=== PATIENT | female | born 1925 | race Caucasian/White ===

== ENCOUNTER 2016-05-15 02:16 | Emergency (ER) | payer MEDICARE, BC ==
--- NOTE | 2016-05-15 03:27 | EDM.PDOC ---
ED HPI HEAD INJURY - General Chief Complaint: Head Injury Stated Complaint: FELL AND HIT HEAD Time Seen by Provider: 05/15/16 02:18 Source of Information: Reports: Patient, EMS History Limitations: Reports: No limitations - History of Present Illness INITIAL COMMENTS - FREE TEXT/NARRATIVE: HISTORY AND PHYSICAL: History of present illness: [] 82-year-old female with a history of atrial fibrillation on Coumadin with which she is compliant also with a history of hypertension and congestive heart failure now brought in by EMS for evaluation after loss of balance and fall. Patient states she fell and bumped her head. Denies loss of consciousness. She denies any neck pain. Patient denies other complaint or injury. She had no chest pain or shortness of breath. No prodromal symptoms whatsoever. she has been feeling well she denies headache currently and has no other complaints. Patient is alert and oriented and she is refusing any laboratory workup. Review of systems: As per history of present illness and below otherwise all systems reviewed and negative. Past medical history: As per history of present illness and as reviewed below otherwise noncontributory. Surgical history: As per history of present illness and as reviewed below otherwise noncontributory. Social history: No reported history of drug or alcohol abuse. Family history: As per history of present illness and as reviewed below otherwise noncontributory. Physical exam: 2 cm laceration right for head. Well approximated spontaneously. No active bleeding. No bony crepitus. No hematoma. Patient with no arcos sign. Normal TMs bilateral with no hemotympanum. Nontender C-spine with normal painless range of motion. Nonfocal neurologic exam. Patient is alert and oriented he to develop or HEENT: Atraumatic, normocephalic, pupils reactive, negative for conjunctival pallor or scleral icterus, mucous membranes moist, throat clear, neck supple, nontender, trachea midline. Lungs: Clear to auscultation, breath sounds equal bilaterally, chest nontender. Heart: S1S2, regular, negative for clicks, rubs, or JVD. Abdomen: Soft, nondistended, nontender. Negative for masses or hepatosplenomegaly. Negative for costovertebral tenderness. Pelvis: Stable nontender. Both hips nontender with no pain internal and external rotation and flexion. Genitourinary: Deferred. Rectal: Deferred. Extremities: Atraumatic, negative for cords or calf pain. Neurovascular unremarkable. Neuro: Awake, alert, oriented. Cranial nerves II through XII unremarkable. Cerebellum unremarkable. Motor and sensory unremarkable throughout. Exam nonfocal. Diagnostics: [] Therapeutics: [] Impression: [] Plan: [] Definitive disposition and diagnosis as appropriate pending reevaluation and review of above. - Related Data Allergies/ADRs: Allergies Allergy/AdvReac Type Severity Reaction Status Date / Time No Known Allergies Allergy Verified 06/21/14 12:55 Home Meds: Home Meds Bisacodyl [Dulcolax] 5 mg PO DAILY PRN #0 tablet 06/27/14 [Rx] Diltiazem [Cardizem CD] 240 mg PO DAILY cap.cd 06/27/14 [Rx] Furosemide [Lasix] 40 mg PO DAILY tablet 06/27/14 [Rx] Mirtazapine [Remeron] 45 mg PO BEDTIME #30 tab.dis 06/27/14 [Rx] cloNIDine [Catapres] 0.1 mg PO Q12HR tablet 06/27/14 [Rx] Acetaminophen [Arthritis Pain Relief] 650 mg PO Q4H PRN 05/15/16 [History] Acetaminophen [Tylenol] 650 mg PO Q6H PRN 05/15/16 [History] Allopurinol [Zyloprim] 100 mg PO BID 05/15/16 [History] Bisacodyl 10 mg RECTAL ASDIRECTED PRN 05/15/16 [History] Citalopram [Celexa] 10 mg PO DAILY 05/15/16 [History] Levothyroxine [Synthroid] 50 mcg PO DAILY 05/15/16 [History] Lisinopril [Prinivil] 20 mg PO DAILY 05/15/16 [History] Loperamide [Imodium] 2 mg PO ASDIRECTED PRN 05/15/16 [History] Magnesium Hydroxide [Milk of Magnesia] 30 ml PO Q6H PRN 05/15/16 [History] Prednisone [IJD: predniSONE] 20 mg PO WITHBREAKFAST 05/15/16 [History] Warfarin [Coumadin] 5 mg PO DAILY 05/15/16 [History] guaiFENesin/Codeine Phosphate [Guaiatussin AC Liquid] 10 ml PO Q4H PRN 05/15/16 [History] Past Medical History HEENT History: Reports: Macular degeneration Cardiovascular History: Reports: Afib, Arrhythmia, Heart Failure, Hypertension, Other (see below) Other Cardiovascular History: systolic heart failure, coronary athersclerosis of unspecified type of vessel Respiratory History: Reports: Pneumonia, recurrent, Other (see below) Other Respiratory History: pleural effusion, pneumonia organism unspecified Gastrointestinal History: Reports: GERD 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: Musculoskeletal History: Reports: Gout, Other (see below) Other Musculoskeletal History: recently started a medication for gout, difficulty walking, lack of coordination, muscle weakness Endocrine/Metabolic History: Reports: Hyperparathyroidism, Other (see below) Other Endocrine/Metabolic History: hyperlipidemia - Infectious Disease History Infectious Disease History: Reports: Measles, Mumps Social & Family History - Family History Family Medical History: Noncontributory - Tobacco Use Smoking Status *Q: Never Smoker Second Hand Smoke Exposure: No - Caffeine Use Caffeine Use: Reports: Coffee - Alcohol Use Days Per Week of Alcohol Use: 0 - Recreational Drug Use Recreational Drug Use: No ED ROS GENERAL - Review of Systems Review Of Systems: See Below (Per history of present illness) ED EXAM, HEAD INJURY - Physical Exam Exam: See Below (Per history of present illness) Course - Vital Signs Text/Narrative:: Status post minor head injury on Coumadin. No hematoma or complaint of headache patient completely alert and oriented with no neck pain or tenderness. Imaging C -spine not indicated clinically. Patient nonfocal neurologically with the remainder of exam benign . CT of the head pending to rule out intracranial injury or bleeding.. Patient is refusing laboratory workup including INR. She is aware of the risk of or permanent disability from refusing this care she's communicative and clear minded and clinically competent for decision- making. If CT x-rays chest and pelvis are unremarkable anticipate outpatient followup and returned to her assisted-living environment. Tetanus updated Last Recorded V/S: Last Vital Signs Temp 36.8 C 05/15/16 02:16 Pulse 103 H 05/15/16 02:16 Resp 20 05/15/16 02:16 BP 206/114 H 05/15/16 02:16 Pulse Ox 93 L 05/15/16 02:16 - Orders/Labs/Meds Orders: Active Orders 24 hr Category Date Time Status EKG Documentation Completion [RC] STAT Care 05/15/16 02:30 Active Vaccines to be Administered [RC] PER UNIT ROUTINE Care 05/15/16 03:50 Active Chest 1V Frontal [CR] Stat Exams 05/15/16 02:51 Taken Head wo Cont [CT] Stat Exams 05/15/16 02:30 Taken Pelvis 1V or 2V [CR] Stat Exams 05/15/16 02:51 Taken Sodium Chloride 0.9% [Normal Saline] 500 ml Med 05/15/16 04:45 Active IV .BOLUS Medication Orders Sodium Chloride (Normal Saline) 500 mls @ 999 mls/hr IV .BOLUS DANIELLE Last Admin: 05/15/16 04:38 Dose: 999 mls/hr Labs: Laboratory Tests 05/15/16 05/15/16 05/15/16 Range/Units 03:39 03:39 03:39 WBC 7.80 (4.0-11.0) K/uL RBC 5.26 (4.30-5.90) M/uL Hgb 14.8 (12.0-16.0) g/dL Hct 43.8 (36.0-46.0) % MCV 83.3 (80.0-98.0) fL MCH 28.1 (27.0-32.0) pg MCHC 33.8 (31.0-37.0) g/dL RDW Std Deviation 47.3 (28.0-62.0) fl RDW Coeff of Glory 16 H (11.0-15.0) % Plt Count 303 (150-400) K/uL MPV 9.60 (7.40-12.00) fL Neut % (Auto) 84.4 H (48.0-80.0) % Lymph % (Auto) 9.2 L (16.0-40.0) % Wallace % (Auto) 6.4 (0.0-15.0) % Eos % (Auto) 0.0 (0.0-7.0) % Baso % (Auto) 0.0 (0.0-1.5) % Neut # (Auto) 6.6 H (1.4-5.7) K/uL Lymph # (Auto) 0.7 (0.6-2.4) K/uL Wallace # (Auto) 0.5 (0.0-0.8) K/uL Eos # (Auto) 0.0 (0.0-0.7) K/uL Baso # (Auto) 0.0 (0.0-0.1) K/uL Nucleated RBC % 0.0 /100WBC Nucleated RBCs # 0 K/uL INR (0.86-1.11) Sodium 139 (136-146) mmol/L Potassium 4.3 (3.5-5.1) mmol/L Chloride 105 (98-110) mmol/L Carbon Dioxide 23 (21-31) mmol/L BUN 31 H (6.0-23.0) mg/dL Creatinine 1.2 (0.6-1.5) mg/dL Est Cr Clr Drug Dosing 23.28 mL/min Estimated GFR (MDRD) 42.4 ml/min Glucose 140 H (60-110) mg/dL Calcium 10.5 (8.8-10.8) mg/dL Troponin I < 0.10 (0.0-0.29) NG/ML 05/15/ Range/Units 03:39 WBC (4.0-11.0) K/uL RBC (4.30-5.90) M/uL Hgb (12.0-16.0) g/dL Hct (36.0-46.0) % MCV (80.0-98.0) fL MCH (27.0-32.0) pg MCHC (31.0-37.0) g/dL RDW Std Deviation (28.0-62.0) fl RDW Coeff of Glory (11.0-15.0) % Plt Count (150-400) K/uL MPV (7.40-12.00) fL Neut % (Auto) (48.0-80.0) % Lymph % (Auto) (16.0-40.0) % Wallace % (Auto) (0.0-15.0) % Eos % (Auto) (0.0-7.0) % Baso % (Auto) (0.0-1.5) % Neut # (Auto) (1.4-5.7) K/uL Lymph # (Auto) (0.6-2.4) K/uL Wallace # (Auto) (0.0-0.8) K/uL Eos # (Auto) (0.0-0.7) K/uL Baso # (Auto) (0.0-0.1) K/uL Nucleated RBC % /100WBC Nucleated RBCs # K/uL INR 1.74 H (0.86-1.11) Sodium (136-146) mmol/L Potassium (3.5-5.1) mmol/L Chloride (98-110) mmol/L Carbon Dioxide (21-31) mmol/L BUN (6.0-23.0) mg/dL Creatinine (0.6-1.5) mg/dL Est Cr Clr Drug Dosing mL/min Estimated GFR (MDRD) ml/min Glucose (60-110) mg/dL Calcium (8.8-10.8) mg/dL Troponin I (0.0-0.29) NG/ML Meds: Medications Generic Name Dose Route Start Last Admin Trade Name Freq PRN Reason Stop Dose Admin Sodium Chloride 500 mls @ 999 mls/hr 05/15/16 04:45 05/15/16 04:38 Normal Saline IV 999 mls/hr .BOLUS DANIELLE Administration Discontinued Medications Generic Name Dose Route Start Last Admin Trade Name Freq PRN Reason Stop Dose Admin Bacitracin 1 dose 05/15/16 03:50 05/15/16 04:09 Bacitracin Oint 1 Gm TOP 05/15/16 03:51 1 dose ONETIME ONE Administration Tetanus/Diphtheria Toxoids 0.5 ml 05/15/16 03:46 05/15/16 04:07 Tenivac IM 05/15/16 03:47 0.5 ml .ONCE ONE Administration Departure - Departure Time of Disposition: 05:03 Disposition: Home, Self-Care 01 Condition: good Clinical Impression: Minor head injury without loss of consciousness, Forehead laceration, Tetanus- diphtheria vaccination administered at current visit, Mild dehydration Instructions: Head Injury, Adult, [id number] Referrals: PCP,None [Primary Care Provider] - Forms: ED Department Discharge Additional Instructions: You have suffered a minor head injury today. Her CAT scan shows no evidence of fracture bleeding or intracranial injury. Her neurologic exam is normal. You have a laceration on the forehead. Have updated your tetanus shot The edges of your wound are close together so no repair is indicated this time. Followup with your DrLupe for reevaluation in one day. Return for new or worsening symptoms or any concerns. - My Orders Last 24 Hours: My Active Orders 05/15/16 02:30 EKG Documentation Completion [RC] STAT Head wo Cont [CT] Stat 05/15/16 02:51 Chest 1V Frontal [CR] Stat Pelvis 1V or 2V [CR] Stat 05/15/16 03:50 Vaccines to be Administered [RC] PER UNIT ROUTINE 05/15/16 04:45 Sodium Chloride 0.9% [Normal Saline] 500 ml IV .BOLUS - Assessment/Plan Last 24 Hours: My Active Orders 05/15/16 02:30 EKG Documentation Completion [RC] STAT Head wo Cont [CT] Stat 05/15/16 02:51 Chest 1V Frontal [CR] Stat Pelvis 1V or 2V [CR] Stat 05/15/16 03:50 Vaccines to be Administered [RC] PER UNIT ROUTINE 05/15/16 04:45 Sodium Chloride 0.9% [Normal Saline] 500 ml IV .BOLUS
[2016-05-15] MEDS ORDERED: Diphtheria/Tetanus Toxoids,Adult (Td) 0.5 ML Syringe IM ONE (03:46)
[2016-05-15] MEDS ORDERED: Bacitracin Oint 1 GM U/D Packet TOP ONE (03:50)
[2016-05-15] MEDS ORDERED: Sodium Chloride 0.9% 500 ML IV SCH (04:45)
[2016-05-15 05:27] VITALS: BP 139/92
--- NOTE | 2016-05-15 14:40 | CT ---
EXAM DATE: 05/15/16 PATIENT'S AGE: 89 Patient: ADOLPH ALLEN Facility: [place], [place] Site . Site : 1925 Study: CT Head WO CONT [id number]/24/2017 3:18:08 AM Ordering Physician: Musa Giraldo Final Report: INDICATIONS: Fall. Hit head. TECHNIQUE: CT head without contrast. COMPARISON: None FINDINGS: Generalized cerebral atrophy and changes of chronic small vessel ischemic disease. More focal ill-defined low attenuation and volume loss in the inferior medial left frontal lobe consistent with sequela of prior infarct. No mass effect, midline shift or hydrocephalus. No CT evidence of acute hemorrhage or infarction. No abnormal extra-axial fluid collection. Intracranial atherosclerosis. Bone windows show no acute abnormality. Visualized paranasal sinuses and orbits are unremarkable. IMPRESSION: No acute intracranial abnormality. 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 Dictated by Jose Moreno MD @ 05/15/2016 3:30:56 AM Dictated by: Jose Moreno MD @ 05/15/2016 03:31:27 (Electronic Signature) Report Signed by Proxy and Original Signed Document filed in the Medical Record. [facility]
--- NOTE | 2016-05-15 14:41 | CR ---
EXAM DATE: 05/15/16 PATIENT'S AGE: 89 Patient: ADOLPH ALLEN Facility: [place], [place] Site . Site : 1925 Study: XRay Pelvis [id number]/24/2017 3:20:58 AM Ordering Physician: Musa Giraldo Final Report: Indication: Fall. Technique: Pelvis one view. Comparison: None. Findings: Bone demineralization and degenerative changes. No evidence of acute fracture or dislocation. No additional osseous abnormality. Soft tissues as imaged are unremarkable. Impression: No acute osseous abnormality. Dictated by Jose Moreno MD @ 05/15/2016 3:27:35 AM Dictated by: Jose Moreno MD @ 05/15/2016 03:27:43 (Electronic Signature) Report Signed by Proxy and Original Signed Document filed in the Medical Record. [facility]
--- NOTE | 2016-05-15 14:41 | CR ---
EXAM DATE: 05/15/16 PATIENT'S AGE: 89 Patient: ADOLPH ALLEN Facility: [place], [place] Site . Site : 1925 Study: XRay Chest [id number]/24/2017 3:20:40 AM Ordering Physician: Musa Giraldo Final Report: INDICATIONS: Fall. TECHNIQUE: Chest 1 view AP supine. COMPARISON: Chest radiograph June 26, 2014. FINDINGS: No pneumothorax, pleural effusion or airspace consolidation. Elevation of the right hemidiaphragm as before. Right basilar scarring or atelectasis. Median sternotomy. Cardiomegaly, unchanged. No pulmonary edema. Upper abdomen and osseous structures show no acute abnormality. Bone demineralization. IMPRESSION: No evidence of acute cardiopulmonary disease. Dictated by Jose Moreno MD @ 05/15/2016 3:24:14 AM Dictated by: Jose Moreno MD @ 05/15/2016 03:24:20 (Electronic Signature) Report Signed by Proxy and Original Signed Document filed in the Medical Record. [facility]
== END 2016-05-15 05:27 | disposition home or self-care (01) ==
LOC: MW.ED 02:16
DX: S09.90XA Unspecified injury of head, initial encounter (principal); S01.81XA Laceration without foreign body of other part of head, initial encounter; W19.XXXA Unspecified fall, initial encounter; E86.0 Dehydration; Z79.01 Long term (current) use of anticoagulants; Z79.899 Other long term (current) drug therapy; H35.30 Unspecified macular degeneration; I48.91 Unspecified atrial fibrillation; I11.0 Hypertensive heart disease with heart failure; I50.20 Unspecified systolic (congestive) heart failure; K21.9 Gastro-esophageal reflux disease without esophagitis; M10.9 Gout, unspecified; E21.3 Hyperparathyroidism, unspecified; E78.5 Hyperlipidemia, unspecified; Z23 Encounter for immunization
CPT/HCPCS: 36415; 70450; 71010; 72170; 80048; 84484; 85025; 85610; 90714; 93005; J7040; 90471; 99283; 99285-25

== ENCOUNTER 2016-07-19 14:46 | Emergency (ER) | payer MEDICARE, BC ==
[2016-07-19 14:58] VITALS: BP 161/74
--- NOTE | 2016-07-19 15:56 | EDM.PDOC ---
ED HPI GENERAL MEDICAL PROBLEM - General Chief Complaint: General Stated Complaint: FALL Time Seen by Provider: 07/19/16 15:05 Source of Information: Reports: Patient History Limitations: Reports: No Limitations - History of Present Illness INITIAL COMMENTS - FREE TEXT/NARRATIVE: History of present illness: [89-year-old female comes in complaining of a mechanical fall. Patient indicates she laid down to take a nap when she went to get up she had her feet trapped in the blanket causing her subsequently to fall denies hitting her head stated that all her weight landed on her right arm which hurts her very badly now.] Review of systems: As per history of present illness and below otherwise all systems reviewed and negative. Past medical history: As per history of present illness and as reviewed below otherwise noncontributory. Surgical history: As per history of present illness and as reviewed below otherwise noncontributory. Social history: No reported history of drug or alcohol abuse. Family history: As per history of present illness and as reviewed below otherwise noncontributory. Physical exam: HEENT: Atraumatic, normocephalic, pupils reactive, negative for conjunctival pallor or scleral icterus, mucous membranes moist, throat clear, neck supple, nontender, trachea midline. Lungs: Clear to auscultation, breath sounds equal bilaterally, chest nontender. Heart: S1S2, regular, negative for clicks, rubs, or JVD. Abdomen: Soft, nondistended, nontender. Negative for masses or hepatosplenomegaly. Negative for costovertebral tenderness. Pelvis: Stable nontender. Genitourinary: Deferred. Rectal: Deferred. Extremities: No deformity of her right arm but generalized tenderness to palpation, negative for cords or calf pain. Neurovascular unremarkable. Neuro: Awake, alert, oriented. Cranial nerves II through XII unremarkable. Cerebellum unremarkable. Motor and sensory unremarkable throughout. Exam nonfocal. While pending results of arm x-rays patient began to have a somewhat ambiguous story leading us have concern of her neck and her head. CT of neck and head obtained results negative for acute changes. Patient seemed to have some short-term memory issues nurse called report to [facility] to get patient back up. Diagnostics: [X-ray of right forearm as well as humerus and shoulder] Therapeutics: [X-ray] Impression: [ulnar styloid fracture] Plan: [Splint, sling, followup with [facility]] Definitive disposition and diagnosis as appropriate pending reevaluation and review of above. Right Shoulder and Right hip Pain Score (Numeric/FACES): 1 - Related Data Allergies Allergy/AdvReac Type Severity Reaction Status Date / Time No Known Allergies Allergy Verified 07/19/16 14:52 Home Meds: Home Meds Bisacodyl [Dulcolax] 5 mg PO DAILY PRN #0 tablet 06/27/14 [Rx] Diltiazem [Cardizem CD] 240 mg PO DAILY cap.cd 06/27/14 [Rx] Furosemide [Lasix] 40 mg PO DAILY tablet 06/27/14 [Rx] Mirtazapine [Remeron] 45 mg PO BEDTIME #30 tab.dis 06/27/14 [Rx] cloNIDine [Catapres] 0.1 mg PO Q12HR tablet 06/27/14 [Rx] Acetaminophen [Arthritis Pain Relief] 650 mg PO Q4H PRN 05/15/16 [History] Allopurinol [Zyloprim] 100 mg PO BID 05/15/16 [History] Bisacodyl 10 mg RECTAL ASDIRECTED PRN 05/15/16 [History] Citalopram [Celexa] 10 mg PO DAILY 05/15/16 [History] Levothyroxine [Synthroid] 50 mcg PO DAILY 05/15/16 [History] Lisinopril [Prinivil] 20 mg PO DAILY 05/15/16 [History] Loperamide [Imodium] 2 mg PO ASDIRECTED PRN 05/15/16 [History] Magnesium Hydroxide [Milk of Magnesia] 30 ml PO Q6H PRN 05/15/16 [History] Warfarin [Coumadin] 5 mg PO DAILY 05/15/16 [History] Dextran 70/Hypromellose [Artificial Tears] 1 drop EYEBOTH QID PRN 07/19/16 [ History] guaiFENesin 100 mg PO Q4H PRN 07/19/16 [History] Past Medical History HEENT History: Reports: Macular Degeneration Cardiovascular History: Reports: Afib, Arrhythmia, Heart Failure, Hypertension, Other (See Below) Other Cardiovascular History: systolic heart failure, coronary athersclerosis of unspecified type of vessel Respiratory History: Reports: Pneumonia, Recurrent Other Respiratory History: pleural effusion, pneumonia organism unspecified Gastrointestinal History: Reports: GERD 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: Musculoskeletal History: Reports: Gout, Other (See Below) Other Musculoskeletal History: recently started a medication for gout, difficulty walking, lack of coordination, muscle weakness Endocrine/Metabolic History: Reports: Hyperparathyroidism, Other (See Below) Other Endocrine/Metabolic History: hyperlipidemia - Infectious Disease History Infectious Disease History: Reports: Measles, Mumps - Past Surgical History HEENT Surgical History: Reports: None Cardiovascular Surgical History: Reports: None Respiratory Surgical History: Reports: None Social & Family History - Family History Family Medical History: Noncontributory - Tobacco Use Smoking Status *Q: Never Smoker Second Hand Smoke Exposure: No - Caffeine Use Caffeine Use: Reports: None - Alcohol Use Days Per Week of Alcohol Use: 0 - Recreational Drug Use Recreational Drug Use: No ED ROS GENERAL - Review of Systems Review Of Systems: See Below (See history of present illness) ED EXAM, GENERAL - Physical Exam Exam: See Below (History of present illness) Course - Vital Signs Last Recorded V/S: Last Vital Signs Temp 37.0 C 07/19/16 14:52 Pulse 89 07/19/16 14:52 Resp 16 07/19/16 14:52 BP 161/74 H 07/19/16 14:52 Pulse Ox 94 L 07/19/16 14:52 - Orders/Labs/Meds Orders: Active Orders 24 hr Category Date Time Status Cervical Spine wo Cont [CT] Stat Exams 07/19/16 16:30 Ordered Forearm 2V Rt [CR] Stat Exams 07/19/16 15:09 Taken Head wo Cont [CT] Stat Exams 07/19/16 16:30 Ordered Humerus Rt [CR] Stat Exams 07/19/16 15:09 Taken Shoulder Comp Rt [CR] Stat Exams 07/19/16 15:09 Taken Departure - Departure Time of Disposition: 18:10 Disposition: Home, Self-Care 01 Condition: good Clinical Impression: Fracture of ulnar styloid - Discharge Information Forms: ED Department Discharge Additional Instructions: The following information is given to patients seen in the emergency department who are being discharged to home. This information is to outline your options for follow-up care. We provide all patients seen in our emergency department with a follow-up referral. The need for follow-up, as well as the timing and circumstances, are variable depending upon the specifics of your emergency department visit. If you don't have a primary care physician on staff, we will provide you with a referral. We always advise you to contact your personal physician following an emergency department visit to inform them of the circumstance of the visit and for follow-up with them and/or the need for any referrals to a consulting specialist. The emergency department will also refer you to a specialist when appropriate. This referral assures that you have the opportunity for follow-up care with a specialist. All of these measure are taken in an effort to provide you with optimal care, which includes your follow-up. Under all circumstances we always encourage you to contact your private physician who remains a resource for coordinating your care. When calling for follow-up care, please make the office aware that this follow-up is from your recent emergency room visit. If for any reason you are refused follow-up, please contact the [facility] Department at and asked to speak to the emergency department charge nurse. Followup with PCP in one to 2 days You're being provided a referral to or so for further evaluation and establishment of care [facility] [address] [place] [address], [address] [place] [address] - My Orders Last 24 Hours: My Active Orders 07/19/16 15:09 Forearm 2V Rt [CR] Stat Humerus Rt [CR] Stat Shoulder Comp Rt [CR] Stat 07/19/16 16:30 Cervical Spine wo Cont [CT] Stat Head wo Cont [CT] Stat - Assessment/Plan Last 24 Hours: My Active Orders 07/19/16 15:09 Forearm 2V Rt [CR] Stat Humerus Rt [CR] Stat Shoulder Comp Rt [CR] Stat 07/19/16 16:30 Cervical Spine wo Cont [CT] Stat Head wo Cont [CT] Stat
--- NOTE | 2016-07-21 13:26 | CR ---
EXAM DATE: 07/19/16 PATIENT'S AGE: 89 Patient: ADOLPH ALLEN Facility: [place], [place] Site . Site : 1925 Study: XRay Extremity Right humerus [id number]/28/2017 3:53:14 PM Ordering Physician: Doctor Malone Final Report: Right humerus 2 VIEWS INDICATION: Injury. IMPRESSION: No visualized fracture. Alignments anatomic. Osteopenia. No fracture of the humerus is suggested. Dictated by Sha Tee MD @ Jul 19 2016 4:20PM (Electronic Signature) Report Signed by Proxy. GAGAN
--- NOTE | 2016-07-21 13:26 | CR ---
EXAM DATE: 07/19/16 PATIENT'S AGE: 89 Patient: ADOLPH ALLEN Facility: [place], [place] Site . Site : 1925 Study: XRay Extremity Right forearm [id number]/28/2017 3:52:27 PM Ordering Physician: Doctor Malone Final Report: Right forearm 2 VIEWS INDICATION: Trauma. IMPRESSION: Osteopenia. Irregularity of the ulnar styloid. This should be correlated with symptoms. Some swelling is present. Fracture could be considered. The views are suboptimal consider additional views. The radius is grossly intact. Dictated by Sha Tee MD @ Jul 19 2016 3:59PM (Electronic Signature) Report Signed by Proxy. GAGAN
--- NOTE | 2016-07-21 13:27 | CR ---
EXAM DATE: 07/19/16 PATIENT'S AGE: 89 Patient: ADOLPH ALLEN Facility: [place], [place] Site . Site : 1925 Study: XRay Shoulder Right [id number]/28/2017 3:53:45 PM Ordering Physician: Doctor Malone Final Report: Right shoulder 2 VIEWS INDICATION: Pain. IMPRESSION: No visualized fracture. Alignments anatomic. Downsloping of the acromion. Midline sternotomy wires. Osteopenia. Dictated by Sha Tee MD @ Jul 19 2016 3:58PM (Electronic Signature) Report Signed by Proxy. GAGAN
--- NOTE | 2016-07-21 13:28 | CT ---
EXAM DATE: 07/19/16 PATIENT'S AGE: 89 Patient: ADOLPH ALLEN Facility: [place], [place] Site . Site : 1925 Study: CT Head [id number]/[id number] 4:59:37 PM Ordering Physician: Doctor Malone Final Report: INDICATION : Trauma TECHNIQUE : Noncontrast CT scan of brain. Axial images. Please note that all CT scans at this facility use dose modulation, iterative reconstruction and/or weight-based dosing when appropriate to reduce radiation dose to as low as reasonably achievable(ALARA). FINDINGS : No acute intra or extra-axial hemorrhage. No visualized intracranial mass. Prominent ventricles and sulci. Patchy decreased attenuation, bilateral, in the periventricular white matter. Atherosclerotic vascular calcification in the carotid and vertebral arteries. Bony calvarium is intact. IMPRESSION : No acute intracranial radiographic abnormality. Cerebral volume loss and incidental/chronic changes listed above. Please note that all CT scans at this facility use dose modulation, iterative reconstruction, and/or weight-based dosing when appropriate to reduce radiation dose to as low as reasonably achievable. Dictated by Sha Tee MD @ Jul 19 2016 6:00PM (Electronic Signature) Report Signed by Proxy. GAGAN
--- NOTE | 2016-07-21 13:29 | CT ---
EXAM DATE: 07/19/16 PATIENT'S AGE: 89 Patient: ADOLPH ALLEN Facility: [place], [place] Site . Site : 1925 Study: CT Spine Cervical [id number]/[id number] 5:03:14 PM Ordering Physician: Doctor Malone Final Report: INDICATION : Trauma. TECHNIQUE : CT scan of the cervical spine. Bone and soft tissue windows with sagittal and coronal reconstructions. Please note that all CT scans at this facility use dose modulation, iterative reconstruction and/or weight-based dosing when appropriate to reduce radiation dose to as low as reasonably achievable(ALARA). FINDINGS : No significant fracture. No significant subluxation. No abnormal soft tissue mass lesions. No significant lesions are visualized within included lung prince. Mild diffuse disk and facet degeneration. No high-grade central or foraminal stenosis. A very minimal degree of angulation is present in the cortex at the anterior left 2nd rib. No displacement. The images are limited cannot assess whether this could be from acute or previous trauma. IMPRESSION : Negative for acute cervical spine fracture or subluxation. Mild cervical spondylosis. Slight angulation of the cortex without displacement anterior left 2nd rib see above. Please note that all CT scans at this facility use dose modulation, iterative reconstruction, and/or weight-based dosing when appropriate to reduce radiation dose to as low as reasonably achievable. Dictated by Sha Tee MD @ Jul 19 2016 5:35PM (Electronic Signature) Report Signed by Proxy. GAGAN
== END 2016-07-19 18:28 | disposition home or self-care (01) ==
LOC: MW.ED 14:46
DX: S52.611A Displaced fracture of right ulna styloid process, initial encounter for closed fracture (principal); I48.91 Unspecified atrial fibrillation; I50.9 Heart failure, unspecified; I10 Essential (primary) hypertension; K21.9 Gastro-esophageal reflux disease without esophagitis; E21.3 Hyperparathyroidism, unspecified; Z79.01 Long term (current) use of anticoagulants; Z79.899 Other long term (current) drug therapy; W01.0XXA Fall on same level from slipping, tripping and stumbling without subsequent striking against object, initial encounter
CPT/HCPCS: 29125; 70450; 70450-26; 72125; 72125-26; 73030-26-RT; 73030-RT; 73060-26-RT; 73060-RT; 73090-26-RT; 73090-RT; 99284; 99284-25

== ENCOUNTER 2017-05-23 08:10 | Inpatient (IN) | payer MEDICARE, BC ==
[2017-05-23] MEDS ORDERED: Sodium Chloride 0.9% 2.5 ML Syringe FLUSH PRN (08:22)
[2017-05-23] MEDS ORDERED: Sodium Chloride 0.9% 10 ML Syringe FLUSH PRN (08:22)
--- NOTE | 2017-05-23 08:28 | EDM.PDOC ---
ED HPI GENERAL MEDICAL PROBLEM - General Chief Complaint: Chest Pain Stated Complaint: CHEST PAINS Time Seen by Provider: 05/23/17 08:15 Source of Information: Reports: Patient History Limitations: Reports: No Limitations - History of Present Illness INITIAL COMMENTS - FREE TEXT/NARRATIVE: History of present illness: []Patient was brought into the ER from her custodial by her son with complaints of chest pain. Patient has a history of atrial fibrillation and is currently on Coumadin and diltiazem. Patient is unclear when her chest pain started but it was sometime during the night and complains of mild shortness of breath. Review of systems: As per history of present illness and below otherwise all systems reviewed and negative. Past medical history: As per history of present illness and as reviewed below otherwise noncontributory. Surgical history: As per history of present illness and as reviewed below otherwise noncontributory. Social history: No reported history of drug or alcohol abuse. Family history: As per history of present illness and as reviewed below otherwise noncontributory. Physical exam: General: Well developed, well nourished in NAD HEENT: Atraumatic, normocephalic, pupils reactive, negative for conjunctival pallor or scleral icterus, mucous membranes moist, throat clear, neck supple, nontender, trachea midline. Lungs: Clear to auscultation, breath sounds equal bilaterally, chest nontender. Heart: S1S2, irregularly regular, negative for clicks, rubs, or JVD. Abdomen: Soft, nondistended, nontender. Negative for masses or hepatosplenomegaly. Negative for costovertebral tenderness. Pelvis: Stable nontender. Genitourinary: Deferred. Rectal: Deferred. Extremities: Atraumatic, negative for cords or calf pain. Neurovascular unremarkable. Neuro: Awake, alert, oriented. Cranial nerves II through XII unremarkable. Cerebellum unremarkable. Motor and sensory unremarkable throughout. Exam nonfocal. Diagnostics: []EKG showing A. fib on 115, CBC is normal, chemistry normal, troponin 0.09 Therapeutics: []Aspirin morphine nitroglycerin given. Impression: []Acute CO, family wants this patient to be on comfort care, she is already a DNR, and does not want to be transferred to [place] for cardiac evaluation. Plan: []Will admit for comfort care as chest pain is ongoing. Dr. Young has been consulted and is willing to admit her for comfort care. Definitive disposition and diagnosis as appropriate pending reevaluation and review of above. Chest Pain Score (Numeric/FACES): 5 - Related Data Allergies Allergy/AdvReac Type Severity Reaction Status Date / Time No Known Allergies Allergy Verified 07/19/16 14:52 Home Meds: Home Meds Bisacodyl [Dulcolax] 5 mg PO DAILY PRN #0 tablet 06/27/14 [Rx] Diltiazem [Cardizem CD] 240 mg PO DAILY cap.cd 06/27/14 [Rx] Furosemide [Lasix] 40 mg PO DAILY tablet 06/27/14 [Rx] Mirtazapine [Remeron] 45 mg PO BEDTIME #30 tab.dis 06/27/14 [Rx] cloNIDine [Catapres] 0.1 mg PO Q12HR tablet 06/27/14 [Rx] Acetaminophen [Arthritis Pain Relief] 650 mg PO Q4H PRN 05/15/16 [History] Allopurinol [Zyloprim] 100 mg PO BID 05/15/16 [History] Bisacodyl 10 mg RECTAL ASDIRECTED PRN 05/15/16 [History] Citalopram [Celexa] 10 mg PO DAILY 05/15/16 [History] Levothyroxine [Synthroid] 50 mcg PO DAILY 05/15/16 [History] Lisinopril [Prinivil] 20 mg PO DAILY 05/15/16 [History] Loperamide [Imodium] 2 mg PO ASDIRECTED PRN 05/15/16 [History] Magnesium Hydroxide [Milk of Magnesia] 30 ml PO Q6H PRN 05/15/16 [History] Warfarin [Coumadin] 5 mg PO DAILY 05/15/16 [History] Dextran 70/Hypromellose [Artificial Tears] 1 drop EYEBOTH QID PRN 07/19/16 [ History] guaiFENesin 100 mg PO Q4H PRN 07/19/16 [History] Past Medical History HEENT History: Reports: Macular Degeneration Cardiovascular History: Reports: Afib, Arrhythmia, Heart Failure, Hypertension, Other (See Below) Other Cardiovascular History: systolic heart failure, coronary athersclerosis of unspecified type of vessel Respiratory History: Reports: Pneumonia, Recurrent Other Respiratory History: pleural effusion, pneumonia organism unspecified Gastrointestinal History: Reports: GERD 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: Musculoskeletal History: Reports: Gout, Other (See Below) Other Musculoskeletal History: recently started a medication for gout, difficulty walking, lack of coordination, muscle weakness Endocrine/Metabolic History: Reports: Hyperparathyroidism, Other (See Below) Other Endocrine/Metabolic History: hyperlipidemia - Infectious Disease History Infectious Disease History: Reports: Measles, Mumps - Past Surgical History HEENT Surgical History: Reports: None Cardiovascular Surgical History: Reports: None Respiratory Surgical History: Reports: None Social & Family History - Family History Family Medical History: Noncontributory - Tobacco Use Smoking Status *Q: Never Smoker Second Hand Smoke Exposure: No - Caffeine Use Caffeine Use: Reports: None - Alcohol Use Days Per Week of Alcohol Use: 0 - Recreational Drug Use Recreational Drug Use: No ED ROS GENERAL - Review of Systems Review Of Systems: See Below (See history of present illness) ED EXAM, GENERAL - Physical Exam Exam: See Below (See history of present illness) Course - Vital Signs Last Recorded V/S: Last Vital Signs Temp 97.7 F 05/23/17 10:00 Pulse 90 05/23/17 10:00 Resp 20 05/23/17 10:00 BP 142/73 H 05/23/17 10:00 Pulse Ox 92 L 05/23/17 10:00 - Orders/Labs/Meds Orders: Active Orders 24 hr Category Date Time Status Patient Status [ADT] Stat ADT 05/23/17 09:19 Active EKG Documentation Completion [RC] STAT Care 05/23/17 08:22 Active Chest 1V Frontal [CR] Stat Exams 05/23/17 08:22 Taken Sodium Chloride 0.9% [Saline Flush] Med 05/23/17 08:22 Active 10 ml FLUSH ASDIRECTED PRN Sodium Chloride 0.9% [Saline Flush] Med 05/23/17 08:22 Active 2.5 ml FLUSH ASDIRECTED PRN Saline Lock Insert [OM.PC] Stat Oth 05/23/17 08:22 Ordered Medication Orders Morphine Sulfate (Morphine) 2 mg IVPUSH Q2H PRN PRN Reason: Pain Sodium Chloride (Saline Flush) 10 ml FLUSH ASDIRECTED PRN PRN Reason: Keep Vein Open Sodium Chloride (Saline Flush) 2.5 ml FLUSH ASDIRECTED PRN PRN Reason: Keep Vein Open Labs: Laboratory Tests 05/23/17 05/23/17 05/23/17 Range/Units 08:25 08:25 08:25 WBC 8.39 (4.0-11.0) K/uL RBC 5.33 (4.30-5.90) M/uL Hgb 15.4 (12.0-16.0) g/dL Hct 45.4 (36.0-46.0) % MCV 85.2 (80.0-98.0) fL MCH 28.9 (27.0-32.0) pg MCHC 33.9 (31.0-37.0) g/dL RDW Std Deviation 53.1 (28.0-62.0) fl RDW Coeff of Glory 17 H (11.0-15.0) % Plt Count 215 (150-400) K/uL MPV 10.10 (7.40-12.00) fL Neut % (Auto) 71.6 (48.0-80.0) % Lymph % (Auto) 16.3 (16.0-40.0) % [place] % (Auto) 11.1 (0.0-15.0) % Eos % (Auto) 0.8 (0.0-7.0) % Baso % (Auto) 0.2 (0.0-1.5) % Neut # (Auto) 6.0 H (1.4-5.7) K/uL Lymph # (Auto) 1.4 (0.6-2.4) K/uL [place] # (Auto) 0.9 H (0.0-0.8) K/uL Eos # (Auto) 0.1 (0.0-0.7) K/uL Baso # (Auto) 0.0 (0.0-0.1) K/uL Nucleated RBC % 0.0 /100WBC Nucleated RBCs # 0 K/uL INR 2.40 Sodium 138 (136-145) mmol/L Potassium 3.7 (3.5-5.1) mmol/L Chloride 102 (98-107) mmol/L Carbon Dioxide 26.3 (21.0-32.0) mmol/L BUN 29 H (7.0-18.0) mg/dL Creatinine 1.3 H (0.6-1.0) mg/dL Est Cr Clr Drug Dosing TNP Estimated GFR (MDRD) 38.6 ml/min Glucose 105 (74-106) mg/dL Calcium 9.6 (8.5-10.1) mg/dL Total Bilirubin 0.9 (0.2-1.0) mg/dL AST 47 H (15-37) IU/L ALT 42 (14-63) IU/L Alkaline Phosphatase 139 H (46-116) U/L Troponin I 0.091 H* (0.000-0.056) ng/mL Total Protein 6.7 (6.4-8.2) g/dL Albumin 3.6 (3.4-5.0) g/dL Globulin 3.1 (2.0-3.5) g/dL Albumin/Globulin Ratio 1.2 L (1.3-2.8) Meds: Medications Generic Name Dose Route Start Last Admin Trade Name Miguel Angel PRN Reason Stop Dose Admin Morphine Sulfate 2 mg 05/23/17 11:26 Morphine IVPUSH Q2H PRN Pain Sodium Chloride 10 ml 05/23/17 08:22 Saline Flush FLUSH ASDIRECTED PRN Keep Vein Open Sodium Chloride 2.5 ml 05/23/17 08:22 Saline Flush FLUSH ASDIRECTED PRN Keep Vein Open Discontinued Medications Generic Name Dose Route Start Last Admin Trade Name Miguel Angel PRN Reason Stop Dose Admin Aspirin 324 mg 05/23/17 09:08 05/23/17 09:20 Aspirin PO 05/23/17 09:09 324 mg ONETIME ONE Administration Diltiazem HCl 20 mg 05/23/17 08:39 05/23/17 08:46 Diltiazem IVPUSH 05/23/17 08:40 20 mg ONETIME ONE Administration Fluoxetine HCl 10 mg 05/23/17 11:30 Prozac PO DAILY DANIELLE Sodium Chloride 500 mls @ 999 mls/hr 05/23/17 08:30 05/23/17 08:34 Normal Saline IV 05/23/17 09:00 999 mls/hr .Bolus ONE Administration Morphine Sulfate 2 mg 05/23/17 09:14 05/23/17 09:20 Morphine IVPUSH 05/23/17 09:15 2 mg ONETIME ONE Administration Nitroglycerin 0.4 mg 05/23/17 09:08 Nitrostat SL Q5M PRN Chest Pain Nitroglycerin 1 gm 05/23/17 09:42 05/23/17 09:46 Nitro-Bid 2% TOP 05/23/17 09:43 1 gm ONETIME ONE Administration Departure - Departure Time of Disposition: 10:00 Disposition: Admitted As Inpatient 68 Condition: Good Clinical Impression: Acute CO - My Orders Last 24 Hours: My Active Orders 05/23/17 08:22 EKG Documentation Completion [RC] STAT Chest 1V Frontal [CR] Stat Sodium Chloride 0.9% [Saline Flush] 10 ml FLUSH ASDIRECTED PRN Sodium Chloride 0.9% [Saline Flush] 2.5 ml FLUSH ASDIRECTED PRN Saline Lock Insert [OM.PC] Stat 05/23/17 09:19 Patient Status [ADT] Stat - Assessment/Plan Last 24 Hours: My Active Orders 05/23/17 08:22 EKG Documentation Completion [RC] STAT Chest 1V Frontal [CR] Stat Sodium Chloride 0.9% [Saline Flush] 10 ml FLUSH ASDIRECTED PRN Sodium Chloride 0.9% [Saline Flush] 2.5 ml FLUSH ASDIRECTED PRN Saline Lock Insert [OM.PC] Stat 05/23/17 09:19 Patient Status [ADT] Stat
[2017-05-23] MEDS ORDERED: Sodium Chloride 0.9% 500 ML IV ONE (08:30)
[2017-05-23] MEDS ORDERED: Diltiazem 25 MG/5 ML SDV IVPUSH ONE (08:39)
[2017-05-23 08:57] LABS: CHLORIDE,CL 102 mmol/L (98-107); SODIUM,NA 138 mmol/L (136-145)
[2017-05-23] MEDS ORDERED: Nitroglycerin 0.4 MG Tab.SL SL PRN (09:08)
[2017-05-23] MEDS ORDERED: Aspirin 81 MG Tab.Chew PO ONE (09:08)
[2017-05-23] MEDS ORDERED: Morphine 4 MG/ML Syringe IVPUSH ONE (09:14)
[2017-05-23] MEDS ORDERED: Nitroglycerin 2% Oint 1 GM UD Packet TOP ONE (09:42)
[2017-05-23] MEDS ORDERED: Morphine 4 MG/ML Syringe IVPUSH PRN (11:26)
[2017-05-23] MEDS ORDERED: Bisacodyl 10 MG Supp RECTAL PRN (15:14)
[2017-05-23] MEDS ORDERED: Acetaminophen 325 MG Tab PO PRN (15:22)
--- NOTE | 2017-05-23 15:22 | PCM.HP ---
H&P History of Present Illness - General Admit Problem/Dx: Admission Diagnosis/Problem Admission Diagnosis/Problem Chest pain - History of Present Illness Initial Comments - Free Text/Narative: 89 yo female with pmh of atrial fibrillation who presented to the ED with complaints of chest pain that started last night. She was noted to be atrial fibrillatio with rate in the 118. She was given IV diltiazem with resolution of rapid ventricular rate and chest pain. According to the patient she only wants comfort measures. Chest Pain Score (Numeric/FACES): 5 Posterior Neck Pain Score (Numeric/FACES): 5 - Related Data Allergies/Adverse Reactions: Allergies Allergy/AdvReac Type Severity Reaction Status Date / Time No Known Allergies Allergy Verified 07/19/16 14:52 Home Medications: Home Meds Bisacodyl [Dulcolax] 5 mg PO DAILY PRN #0 tablet 06/27/14 [Rx] Diltiazem [Cardizem CD] 240 mg PO DAILY cap.cd 06/27/14 [Rx] Furosemide [Lasix] 40 mg PO DAILY tablet 06/27/14 [Rx] Mirtazapine [Remeron] 45 mg PO BEDTIME #30 tab.dis 06/27/14 [Rx] cloNIDine [Catapres] 0.1 mg PO Q12HR tablet 06/27/14 [Rx] Acetaminophen [Arthritis Pain Relief] 650 mg PO Q4H PRN 05/15/16 [History] Allopurinol [Zyloprim] 100 mg PO BID 05/15/16 [History] Bisacodyl 10 mg RECTAL ASDIRECTED PRN 05/15/16 [History] Citalopram [Celexa] 10 mg PO DAILY 05/15/16 [History] Levothyroxine [Synthroid] 50 mcg PO DAILY 05/15/16 [History] Lisinopril [Prinivil] 20 mg PO DAILY 05/15/16 [History] Loperamide [Imodium] 2 mg PO ASDIRECTED PRN 05/15/16 [History] Magnesium Hydroxide [Milk of Magnesia] 30 ml PO Q6H PRN 05/15/16 [History] Warfarin [Coumadin] 5 mg PO DAILY 05/15/16 [History] Dextran 70/Hypromellose [Artificial Tears] 1 drop EYEBOTH QID PRN 07/19/16 [ History] guaiFENesin 100 mg PO Q4H PRN 07/19/16 [History] Past Medical History HEENT History: Reports: Macular Degeneration Cardiovascular History: Reports: Afib, Arrhythmia, Heart Failure, Hypertension, Other (See Below) Other Cardiovascular History: systolic heart failure, coronary athersclerosis of unspecified type of vessel Respiratory History: Reports: Pneumonia, Recurrent Other Respiratory History: pleural effusion, pneumonia organism unspecified Gastrointestinal History: Reports: 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: Musculoskeletal History: Reports: Gout, Other (See Below) Other Musculoskeletal History: recently started a medication for gout, difficulty walking, lack of coordination, muscle weakness Endocrine/Metabolic History: Reports: Hyperparathyroidism, Other (See Below) Other Endocrine/Metabolic History: hyperlipidemia - Infectious Disease History Infectious Disease History: Reports: Measles, Mumps - Past Surgical History HEENT Surgical History: Reports: None Cardiovascular Surgical History: Reports: None Respiratory Surgical History: Reports: None Social & Family History - Family History Family Medical History: Noncontributory - Tobacco Use Smoking Status *Q: Never Smoker Second Hand Smoke Exposure: No - Caffeine Use Caffeine Use: Reports: None - Alcohol Use Days Per Week of Alcohol Use: 0 - Recreational Drug Use Recreational Drug Use: No H&P Review of Systems - Review of Systems: Review Of Systems: ROS reveals no pertinent complaints other than HPI. Exam - Exam Exam: See Below - Vital Signs Vital Signs: Last Vital Signs Temp 36.5 C 05/23/17 10:00 Pulse 90 05/23/17 10:00 Resp 20 05/23/17 10:00 BP 142/73 H 05/23/17 10:00 Pulse Ox 92 L 05/23/17 10:00 Weight: 61.416 kg - Exam General: Alert, Oriented HEENT: Mucosa Moist & [place] Lungs: Clear to Auscultation, Normal Respiratory Effort Cardiovascular: Regular Rate, Regular Rhythm GI/Abdominal Exam: Soft, Non-Tender Extremities: No Pedal Edema - Patient Data Lab Results Last 24 hrs: Laboratory Results - last 24 hr 05/23/17 05/23/17 05/23/17 Range/Units 08:25 08:25 08:25 WBC 8.39 (4.0-11.0) K/uL RBC 5.33 (4.30-5.90) M/uL Hgb 15.4 (12.0-16.0) g/dL Hct 45.4 (36.0-46.0) % MCV 85.2 (80.0-98.0) fL MCH 28.9 (27.0-32.0) pg MCHC 33.9 (31.0-37.0) g/dL RDW Std Deviation 53.1 (28.0-62.0) fl RDW Coeff of Glory 17 H (11.0-15.0) % Plt Count 215 (150-400) K/uL MPV 10.10 (7.40-12.00) fL Neut % (Auto) 71.6 (48.0-80.0) % Lymph % (Auto) 16.3 (16.0-40.0) % [place] % (Auto) 11.1 (0.0-15.0) % Eos % (Auto) 0.8 (0.0-7.0) % Baso % (Auto) 0.2 (0.0-1.5) % Neut # (Auto) 6.0 H (1.4-5.7) K/uL Lymph # (Auto) 1.4 (0.6-2.4) K/uL [place] # (Auto) 0.9 H (0.0-0.8) K/uL Eos # (Auto) 0.1 (0.0-0.7) K/uL Baso # (Auto) 0.0 (0.0-0.1) K/uL Nucleated RBC % 0.0 /100WBC Nucleated RBCs # 0 K/uL INR 2.40 Sodium 138 (136-145) mmol/L Potassium 3.7 (3.5-5.1) mmol/L Chloride 102 (98-107) mmol/L Carbon Dioxide 26.3 (21.0-32.0) mmol/L BUN 29 H (7.0-18.0) mg/dL Creatinine 1.3 H (0.6-1.0) mg/dL Est Cr Clr Drug Dosing TNP Estimated GFR (MDRD) 38.6 ml/min Glucose 105 (74-106) mg/dL Calcium 9.6 (8.5-10.1) mg/dL Total Bilirubin 0.9 (0.2-1.0) mg/dL AST 47 H (15-37) IU/L ALT 42 (14-63) IU/L Alkaline Phosphatase 139 H (46-116) U/L Troponin I 0.091 H* (0.000-0.056) ng/mL Total Protein 6.7 (6.4-8.2) g/dL Albumin 3.6 (3.4-5.0) g/dL Globulin 3.1 (2.0-3.5) g/dL Albumin/Globulin Ratio 1.2 L (1.3-2.8) Result Diagrams: 05/23/17 08:25 05/23/17 08:25 Problem List Initiated/Reviewed/Updated: Yes Orders Last 24hrs: Active Orders 24 hr Category Date Time Status Patient Status [ADT] Stat ADT 05/23/17 09:19 Active EKG Documentation Completion [RC] STAT Care 05/23/17 08:22 Active Oxygen Therapy [RC] PRN Care 05/23/17 15:15 Ordered VTE/DVT Education [RC] PER UNIT ROUTINE Care 05/23/17 15:15 Ordered Vital Signs [RC] Q4H Care 05/23/17 15:15 Ordered Regular Diet [DIET] Diet 05/23/17 Lunch Active Chest 1V Frontal [CR] Stat Exams 05/23/17 08:22 Taken Acetaminophen Med 05/23/17 15:14 Ordered 650 mg PO Q4H PRN Allopurinol [Zyloprim] Med 05/23/17 21:00 Ordered 100 mg PO BID Bisacodyl [Dulcolax] Med 05/23/17 15:14 Ordered 10 mg RECTAL ASDIRECTED PRN Bisacodyl [Dulcolax] Med 05/23/17 15:14 Ordered 5 mg PO DAILY PRN Citalopram Med 05/24/17 09:00 Ordered 10 mg PO DAILY Dextran 70/Hypromellose [Artificial Tears] Med 05/23/17 15:14 Ordered 1 drop EYEBOTH QID PRN Diltiazem [Cardizem CD] Med 05/24/17 09:00 Ordered 240 mg PO DAILY Furosemide [Lasix] Med 05/24/17 09:00 Ordered 40 mg PO DAILY Levothyroxine [Synthroid] Med 05/24/17 09:00 Ordered 50 mcg PO DAILY Lisinopril [Prinivil] Med 05/24/17 09:00 Ordered 20 mg PO DAILY Mirtazapine [Remeron] Med 05/23/17 21:00 Ordered 45 mg PO BEDTIME Morphine Med 05/23/17 11:26 Active 2 mg IVPUSH Q2H PRN Sodium Chloride 0.9% [Saline Flush] Med 05/23/17 08:22 Active 10 ml FLUSH ASDIRECTED PRN Sodium Chloride 0.9% [Saline Flush] Med 05/23/17 08:22 Active 2.5 ml FLUSH ASDIRECTED PRN Warfarin [Coumadin] Med 05/24/17 09:00 Ordered 5 mg PO DAILY cloNIDine [Catapres] Med 05/23/17 21:00 Ordered 0.1 mg PO Q12HR Saline Lock Insert [OM.PC] Stat Oth 05/23/17 08:22 Ordered Sequential Compression Device [OM.PC] Per Unit Routine Oth 05/23/17 15:15 Ordered Resuscitation Status Routine Resus Stat 05/23/17 15:15 Ordered Medication Orders Morphine Sulfate (Morphine) 2 mg IVPUSH Q2H PRN PRN Reason: Pain Sodium Chloride (Saline Flush) 10 ml FLUSH ASDIRECTED PRN PRN Reason: Keep Vein Open Sodium Chloride (Saline Flush) 2.5 ml FLUSH ASDIRECTED PRN PRN Reason: Keep Vein Open Assessment/Plan Comment:: 89 yo female who presented with chest pain and atrial fibrillation with RVR. Troponin is slightly elevated. Patient is wanting comfort measures so will monitor today to ensure chest pain and heart rate is controlled and then likely discharge home tomorrow.
[2017-05-23] MEDS ORDERED: Polyvinyl Alcohol 1.4% Ophth Soln 15 ML Bottle EYEBOTH PRN (15:30)
[2017-05-23] MEDS: Bisacodyl 5 MG Tab PO PRN (16:29)
[2017-05-23] MEDS: Warfarin 5 MG Tab PO SCH (16:29)
[2017-05-23] MEDS: Mirtazapine 15 MG Tab.DIS PO SCH (20:46)
[2017-05-23] MEDS: Allopurinol 100 MG Tab PO SCH (20:48)
[2017-05-23] MEDS: cloNIDine 0.1 MG Tab PO SCH (20:50)
[2017-05-24] MEDS: cloNIDine 0.1 MG Tab PO SCH ×3 (00:37→22:12)
[2017-05-24] MEDS: Levothyroxine 50 MCG Tab PO SCH (06:45)
[2017-05-24] MEDS ORDERED: Bisacodyl 10 MG Supp RECTAL PRN (07:15)
[2017-05-24] MEDS ORDERED: Furosemide 40 MG/4 ML VIAL IVPUSH ONE (08:39)
[2017-05-24] MEDS: Allopurinol 100 MG Tab PO SCH ×2 (08:56→22:12)
[2017-05-24] MEDS: Citalopram 20 MG Tab PO SCH (08:57)
[2017-05-24] MEDS: Lisinopril 10 MG Tab PO SCH (08:58)
[2017-05-24] MEDS: Diltiazem 120 MG Cap.CD PO SCH (08:59)
[2017-05-24] MEDS ORDERED: Furosemide 40 MG Tab PO SCH (09:00)
--- NOTE | 2017-05-24 13:22 | CR ---
EXAM DATE: 05/23/17 PATIENT'S AGE: 89 Patient: ADOLPH ALLEN Facility: [place], [place] Site . Site : 1925 Study: XRay Chest [id number]/1/[id number] 8:53:17 AM Ordering Physician: Doctor Malone Final Report: INDICATION: Chest pain; shortness of breath. COMPARISON: Chest radiograph May 15, 2016. TECHNIQUE: Portable AP chest. FINDINGS: Stable cardiomegaly. Stable elevation of the right hemidiaphragm; chronic in nature. Status post median sternotomy. Mild pulmonary congestion. No pneumothorax. IMPRESSION: 1. Stable cardiomegaly. 2. Chronic elevation of the right hemidiaphragm. 3. Mild pulmonary congestion. Dictated by Richie Oliveira MD @ May 23 2017 8:53AM (Electronic Signature) Report Signed by Proxy. GAGAN
--- NOTE | 2017-05-24 13:24 | PCM.PN ---
- General Info Date of Service: 05/24/17 Admission Dx/Problem (Free Text): Admission Diagnosis/Problem Admission Diagnosis/Problem Chest pain Subjective Update: Reports shortness of breath and chest pain especially with ambulation. On second rounds family at bedside, requesting transfer to [facility]. Reports she cognitively has declined in the last few years and started wondering at the [facility]. They had initiated the move to [place] with [facility] and Dr Harmon, which was going to take place June 07. They request keeping Ethyl comfortable, no heroic measures, but it is ok to treat dyspnea with Morphine and Lasix PRN. Functional Status: Reports: Pain Controlled - Review of Systems General: Reports: No Symptoms. Denies: Fever, Weakness, Fatigue, Malaise HEENT: Reports: No Symptoms. Denies: Headaches, Sore Throat, Visual Changes Pulmonary: Reports: No Symptoms, Shortness of Breath, Wheezing Cardiovascular: Reports: Chest Pain. Denies: Palpitations Gastrointestinal: Reports: No Symptoms. Denies: Abdominal Pain, Nausea, Vomiting Genitourinary: Reports: No Symptoms. Denies: Dysuria, Frequency, Burning, Pain Musculoskeletal: Reports: No Symptoms Neurological: Reports: No Symptoms. Denies: Confusion Psychiatric: Reports: No Symptoms. Denies: Confusion - Patient Data Vitals - Most Recent: Last Vital Signs Temp 98.9 F 05/24/17 12:00 Pulse 85 05/24/17 12:00 Resp 24 H 05/24/17 12:00 BP 101/64 05/24/17 12:00 Pulse Ox 93 L 05/24/17 12:00 Weight - Most Recent: 61.416 kg I&O - Last 24 Hours: Intake & Output 05/23/17 05/24/17 05/24/17 22:59 06:59 14:59 Intake Total 200 200 Output Total 400 400 Balance -200 -200 Med Orders - Current: Current Medications Acetaminophen (Tylenol) 650 mg PO Q4H PRN PRN Reason: PAIN/FEVER Allopurinol (Zyloprim) 100 mg PO BID [facility] Last Admin: 05/24/17 08:56 Dose: 100 mg Artificial Tears (Liquitears 1.4% Ophth Soln) 0 ml EYEBOTH QID PRN PRN Reason: DRY EYE Bisacodyl (Dulcolax) 5 mg PO DAILY PRN PRN Reason: Constipation Last Admin: 05/23/17 16:29 Dose: 5 mg Bisacodyl (Dulcolax) 10 mg RECTAL BEDTIME PRN PRN Reason: Constipation Citalopram Hydrobromide (Celexa) 10 mg PO DAILY [facility] Last Admin: 05/24/17 08:57 Dose: 10 mg Clonidine HCl (Catapres) 0.1 mg PO Q12HR [facility] Last Admin: 05/24/17 08:57 Dose: 0.1 mg Diltiazem HCl (Cardizem Cd) 240 mg PO DAILY [facility] Last Admin: 05/24/17 08:59 Dose: 240 mg Levothyroxine Sodium (Synthroid) 50 mcg PO ACBREAKFAST [facility] Last Admin: 05/24/17 06:45 Dose: 50 mcg Lisinopril (Prinivil) 20 mg PO DAILY [facility] Last Admin: 05/24/17 08:58 Dose: 20 mg Mirtazapine (Remeron) 45 mg PO BEDTIME [facility] Last Admin: 05/23/17 20:46 Dose: 45 mg Morphine Sulfate (Morphine) 2 mg IVPUSH Q2H PRN PRN Reason: Pain Last Admin: 05/24/17 00:42 Dose: 2 mg Sodium Chloride (Saline Flush) 10 ml FLUSH ASDIRECTED PRN PRN Reason: Keep Vein Open Sodium Chloride (Saline Flush) 2.5 ml FLUSH ASDIRECTED PRN PRN Reason: Keep Vein Open Warfarin Sodium (Coumadin) 5 mg PO DAILY@1400 [facility] Last Admin: 05/23/17 16:29 Dose: 5 mg Discontinued Medications Aspirin (Aspirin) 324 mg PO ONETIME ONE Stop: 05/23/17 09:09 Last Admin: 05/23/17 09:20 Dose: 324 mg Bisacodyl (Dulcolax) 10 mg RECTAL ASDIRECTED PRN PRN Reason: Constipation Diltiazem HCl (Diltiazem) 20 mg IVPUSH ONETIME ONE Stop: 05/23/17 08:40 Last Admin: 05/23/17 08:46 Dose: 20 mg Fluoxetine HCl (Prozac) 10 mg PO DAILY [facility] Furosemide (Lasix) 40 mg PO DAILY [facility] Furosemide (Lasix) 40 mg IVPUSH NOW ONE Stop: 05/24/17 08:40 Last Admin: 05/24/17 09:01 Dose: 40 mg Sodium Chloride (Normal Saline) 500 mls @ 999 mls/hr IV .Bolus ONE Stop: 05/23/17 09:00 Last Admin: 05/23/17 08:34 Dose: 999 mls/hr Morphine Sulfate (Morphine) 2 mg IVPUSH ONETIME ONE Stop: 05/23/17 09:15 Last Admin: 05/23/17 09:20 Dose: 2 mg Nitroglycerin (Nitrostat) 0.4 mg SL Q5M PRN PRN Reason: Chest Pain Nitroglycerin (Nitro-Bid 2%) 1 gm TOP ONETIME ONE Stop: 05/23/17 09:43 Last Admin: 05/23/17 09:46 Dose: 1 gm - Exam Quality Assessment: Supplemental Oxygen General: Alert, Cooperative, Mild Distress (dyspnea noted on assessment.). No: Oriented Neck: Supple Lungs: Crackles (bilateral bases.) Cardiovascular: Regular Rate, Irregular Rhythm GI/Abdominal Exam: Normal Bowel Sounds, Soft, Non-Tender, No Organomegaly, No Distention, No Abnormal Bruit, No Mass, Pelvis Stable Extremities: Normal Inspection, Normal Range of Motion, Non-Tender, Normal Capillary Refill, Pedal Edema (trace to +1 BLE) Neurological: No New Focal Deficit Psy/Mental Status: Alert, Normal Affect, Normal Mood - Problem List & Annotations (1) Chest pain SNOMED Code(s): 62129876 Code(s): R07.9 - CHEST PAIN, UNSPECIFIED Status: Acute Current Visit: Yes (2) Acute [place] SNOMED Code(s): 30276054 Code(s): I21.9 - ACUTE MYOCARDIAL INFARCTION, UNSPECIFIED Status: Acute Current Visit: Yes Qualifiers: Myocardial infarction type: non-ST elevation myocardial infarction Qualified Code(s): I21.4 - Non-ST elevation (NSTEMI) myocardial infarction (3) Dyspnea SNOMED Code(s): 144875762 Code(s): R06.00 - DYSPNEA, UNSPECIFIED Status: Acute Current Visit: No Qualifiers: Dyspnea type: dyspnea on exertion Qualified Code(s): R06.09 - Other forms of dyspnea (4) Systolic heart failure SNOMED Code(s): 322588428 Code(s): I50.20 - UNSPECIFIED SYSTOLIC (CONGESTIVE) HEART FAILURE Status: Acute Current Visit: No Qualifiers: Heart failure chronicity: acute on chronic Qualified Code(s): I50.23 - Acute on chronic systolic (congestive) heart failure (5) HTN (hypertension) SNOMED Code(s): 38800716 Code(s): I10 - ESSENTIAL (PRIMARY) HYPERTENSION Status: Acute Current Visit: No Qualifiers: Hypertension type: essential hypertension Qualified Code(s): I10 - Essential (primary) hypertension (6) Atrial fibrillation SNOMED Code(s): 72904115 Code(s): I48.91 - UNSPECIFIED ATRIAL FIBRILLATION Status: Chronic Current Visit: No Qualifiers: Atrial fibrillation type: chronic Qualified Code(s): I48.2 - Chronic atrial fibrillation - Problem List Review Problem List Initiated/Reviewed/Updated: Yes - My Orders Last 24 Hours: My Active Orders 05/24/17 13:09 Patient Status [ADT] Stat - Plan Plan:: 89 yo female who presented with chest pain and atrial fibrillation with RVR. 1. Chest pain: Possible acute CO. Patient and family requested palliative care. No further labwork to be completed and medications to provide comfort only. Troponin is slightly elevated on admission. Chest pain continues today, mainly with exertion with associated shortness of breath. Spoke with TAHIRA Casillas. 2. Dyspnea: Possible acute on chronic exacerbation of CHF, systolic. Lasix IV given today to help with dyspnea. Will continue with Morphine as well and monitor for comfort. Requiring more oxygen this morning, up to 4 L, reassess after Lasix. 3. Afib: Stable. Continue Coumadin. No RVR noted. HR 80-90s Dispo: pending transfer to [place]
[2017-05-24] MEDS: Warfarin 5 MG Tab PO SCH (14:36)
[2017-05-24] MEDS: Mirtazapine 15 MG Tab.DIS PO SCH (22:12)
[2017-05-25] MEDS: Levothyroxine 50 MCG Tab PO SCH (06:43)
--- NOTE | 2017-05-25 08:36 | PCM.PN ---
- General Info Date of Service: 05/25/17 Admission Dx/Problem (Free Text): Admission Diagnosis/Problem Admission Diagnosis/Problem Chest pain Subjective Update: Jonas is more alert this morning, per nursing report she has been up all night, confused at times but alert to self and wandering in her room attempting to get dressed in the middle of the night. Jonas is ambulating this morning with nursing, denies shortness of breath or chest pain. But then once sitting down she reports shortness of breath "is the trouble". She appears less dyspneic than yesterday. No other concerns. Functional Status: Reports: Pain Controlled, Tolerating Diet, Ambulating, Urinating - Review of Systems General: Reports: No Symptoms. Denies: Fever Pulmonary: Reports: Shortness of Breath. Denies: Cough, Sputum, Wheezing Cardiovascular: Reports: Dyspnea on Exertion. Denies: Chest Pain, Lightheadedness Gastrointestinal: Reports: No Symptoms. Denies: Abdominal Pain, Nausea, Vomiting Musculoskeletal: Reports: No Symptoms Neurological: Reports: No Symptoms Psychiatric: Reports: No Symptoms - Patient Data Vitals - Most Recent: Last Vital Signs Temp 97.3 F 05/25/17 08:26 Pulse 20 L 05/25/17 08:26 Resp 20 05/25/17 08:26 BP 147/83 H 05/25/17 08:26 Pulse Ox 90 L 05/25/17 08:26 Weight - Most Recent: 61 kg I&O - Last 24 Hours: Intake & Output 05/24/17 05/25/17 05/25/17 22:59 06:59 14:59 Intake Total 668 350 Output Total 650 500 Balance 18 -150 Med Orders - Current: Current Medications Acetaminophen (Tylenol) 650 mg PO Q4H PRN PRN Reason: PAIN/FEVER Last Admin: 05/24/17 14:39 Dose: 650 mg Allopurinol (Zyloprim) 100 mg PO BID [facility]ANIEL[facility] Last Admin: 05/24/17 22:12 Dose: 100 mg Artificial Tears (Liquitears 1.4% Ophth Soln) 0 ml EYEBOTH QID PRN PRN Reason: DRY EYE Bisacodyl (Dulcolax) 5 mg PO DAILY PRN PRN Reason: Constipation Last Admin: 05/23/17 16:29 Dose: 5 mg Bisacodyl (Dulcolax) 10 mg RECTAL BEDTIME PRN PRN Reason: Constipation Citalopram Hydrobromide (Celexa) 10 mg PO DAILY [facility] Last Admin: 05/24/17 08:57 Dose: 10 mg Clonidine HCl (Catapres) 0.1 mg PO Q12HR [facility] Last Admin: 05/24/17 22:12 Dose: 0.1 mg Diltiazem HCl (Cardizem Cd) 240 mg PO DAILY [facility] Last Admin: 05/24/17 08:59 Dose: 240 mg Levothyroxine Sodium (Synthroid) 50 mcg PO ACBREAKFAST [facility] Last Admin: 05/25/17 06:43 Dose: 50 mcg Lisinopril (Prinivil) 20 mg PO DAILY [facility] Last Admin: 05/24/17 08:58 Dose: 20 mg Mirtazapine (Remeron) 45 mg PO BEDTIME [facility] Last Admin: 05/24/17 22:12 Dose: 45 mg Morphine Sulfate (Morphine) 2 mg IVPUSH Q2H PRN PRN Reason: Pain/shortnessofbreath Last Admin: 05/24/17 00:42 Dose: 2 mg Sodium Chloride (Saline Flush) 10 ml FLUSH ASDIRECTED PRN PRN Reason: Keep Vein Open Sodium Chloride (Saline Flush) 2.5 ml FLUSH ASDIRECTED PRN PRN Reason: Keep Vein Open Warfarin Sodium (Coumadin) 5 mg PO DAILY@1400 [facility] Last Admin: 05/24/17 14:36 Dose: 5 mg Discontinued Medications Aspirin (Aspirin) 324 mg PO ONETIME ONE Stop: 05/23/17 09:09 Last Admin: 05/23/17 09:20 Dose: 324 mg Bisacodyl (Dulcolax) 10 mg RECTAL ASDIRECTED PRN PRN Reason: Constipation Diltiazem HCl (Diltiazem) 20 mg IVPUSH ONETIME ONE Stop: 05/23/17 08:40 Last Admin: 05/23/17 08:46 Dose: 20 mg Fluoxetine HCl (Prozac) 10 mg PO DAILY [facility] Furosemide (Lasix) 40 mg PO DAILY [facility] Furosemide (Lasix) 40 mg IVPUSH NOW ONE Stop: 05/24/17 08:40 Last Admin: 05/24/17 09:01 Dose: 40 mg Sodium Chloride (Normal Saline) 500 mls @ 999 mls/hr IV .Bolus ONE Stop: 05/23/17 09:00 Last Admin: 05/23/17 08:34 Dose: 999 mls/hr Morphine Sulfate (Morphine) 2 mg IVPUSH ONETIME ONE Stop: 05/23/17 09:15 Last Admin: 05/23/17 09:20 Dose: 2 mg Nitroglycerin (Nitrostat) 0.4 mg SL Q5M PRN PRN Reason: Chest Pain Nitroglycerin (Nitro-Bid 2%) 1 gm TOP ONETIME ONE Stop: 05/23/17 09:43 Last Admin: 05/23/17 09:46 Dose: 1 gm - Exam General: Alert, Cooperative, No Acute Distress. No: Oriented (only to self) Neck: Supple Lungs: Normal Respiratory Effort, Crackles (fine crackles to R side only today, much improved from yesterday.) Cardiovascular: Regular Rate, Irregular Rhythm GI/Abdominal Exam: Normal Bowel Sounds, Soft, Non-Tender, No Organomegaly, No Distention, No Abnormal Bruit, No Mass, Pelvis Stable Extremities: Normal Inspection, Normal Range of Motion, Non-Tender, No Pedal Edema, Normal Capillary Refill Neurological: No New Focal Deficit Psy/Mental Status: Alert, Normal Affect, Normal Mood - Problem List & Annotations (1) Chest pain SNOMED Code(s): 75411915 Code(s): R07.9 - CHEST PAIN, UNSPECIFIED Status: Acute Current Visit: Yes (2) Acute [place] SNOMED Code(s): 87549002 Code(s): I21.9 - ACUTE MYOCARDIAL INFARCTION, UNSPECIFIED Status: Acute Current Visit: Yes Qualifiers: Myocardial infarction type: non-ST elevation myocardial infarction Qualified Code(s): I21.4 - Non-ST elevation (NSTEMI) myocardial infarction (3) Dyspnea SNOMED Code(s): 797700140 Code(s): R06.00 - DYSPNEA, UNSPECIFIED Status: Acute Current Visit: No Qualifiers: Dyspnea type: dyspnea on exertion Qualified Code(s): R06.09 - Other forms of dyspnea (4) Systolic heart failure SNOMED Code(s): 622861073 Code(s): I50.20 - UNSPECIFIED SYSTOLIC (CONGESTIVE) HEART FAILURE Status: Acute Current Visit: No Qualifiers: Heart failure chronicity: acute on chronic Qualified Code(s): I50.23 - Acute on chronic systolic (congestive) heart failure (5) HTN (hypertension) SNOMED Code(s): 02170439 Code(s): I10 - ESSENTIAL (PRIMARY) HYPERTENSION Status: Acute Current Visit: No Qualifiers: Hypertension type: essential hypertension Qualified Code(s): I10 - Essential (primary) hypertension (6) Atrial fibrillation SNOMED Code(s): 98929140 Code(s): I48.91 - UNSPECIFIED ATRIAL FIBRILLATION Status: Chronic Current Visit: No Qualifiers: Atrial fibrillation type: chronic Qualified Code(s): I48.2 - Chronic atrial fibrillation - Problem List Review Problem List Initiated/Reviewed/Updated: Yes - My Orders Last 24 Hours: My Active Orders 05/24/17 13:09 Patient Status [ADT] Stat 05/25/17 09:00 Furosemide [Lasix] 40 mg PO DAILY - Plan Plan:: 89 yo female who presented with chest pain and atrial fibrillation with RVR. 1. Chest pain: Improved today. appears to be feeling better today as well. Less dypsnea and no chest pain. Continue palliative care. No further labwork to be completed and medications to provide comfort only. Troponin is slightly elevated on admission. Will give PO dosing of Lasix today as per home medications. 2. Dyspnea: Possible acute on chronic exacerbation of CHF, systolic. Lasix IV given yesterday in place of PO dosing, which helped with dyspnea. Continue with Morphine as well and monitor for comfort. Requiring oxygen PRN, ambulating this morning Oz 94% on RA. Continue to monitor and place oxygen for comfort PRN. 3. Afib: Stable. Continue Coumadin. No RVR noted. HR 80-90s Dispo: pending transfer to [place]
[2017-05-25] MEDS: cloNIDine 0.1 MG Tab PO SCH ×2 (08:41→20:46)
[2017-05-25] MEDS: Lisinopril 10 MG Tab PO SCH (08:41)
[2017-05-25] MEDS: Allopurinol 100 MG Tab PO SCH ×2 (08:41→20:47)
[2017-05-25] MEDS: Citalopram 20 MG Tab PO SCH (08:42)
[2017-05-25] MEDS: Diltiazem 120 MG Cap.CD PO SCH (08:42)
[2017-05-25] MEDS: Furosemide 40 MG Tab PO SCH (08:48)
[2017-05-25] MEDS: Warfarin 5 MG Tab PO SCH (13:57)
[2017-05-25] MEDS: Mirtazapine 15 MG Tab.DIS PO SCH (20:47)
[2017-05-25] MEDS: Bisacodyl 5 MG Tab PO PRN (20:58)
[2017-05-26] MEDS: Levothyroxine 50 MCG Tab PO SCH (06:44)
[2017-05-26] MEDS: Allopurinol 100 MG Tab PO SCH ×2 (08:44→20:32)
[2017-05-26] MEDS: Diltiazem 120 MG Cap.CD PO SCH (08:45)
[2017-05-26] MEDS: Furosemide 40 MG Tab PO SCH (08:46)
[2017-05-26] MEDS: Citalopram 20 MG Tab PO SCH (08:46)
[2017-05-26] MEDS: Lisinopril 10 MG Tab PO SCH (08:46)
[2017-05-26] MEDS: cloNIDine 0.1 MG Tab PO SCH ×2 (08:47→20:36)
--- NOTE | 2017-05-26 09:56 | PCM.PN ---
- General Info Date of Service: 05/26/17 Admission Dx/Problem (Free Text): Admission Diagnosis/Problem Admission Diagnosis/Problem Chest pain Subjective Update: Sitting up in the chair today. Doing well, denies any pain or shortness of breath. Family at bedside on second rounds. Functional Status: Reports: Pain Controlled, Tolerating Diet, Ambulating, Urinating - Review of Systems General: Reports: No Symptoms. Denies: Fever, Weakness, Fatigue, Malaise Pulmonary: Reports: No Symptoms. Denies: Shortness of Breath Cardiovascular: Reports: No Symptoms. Denies: Chest Pain Gastrointestinal: Reports: No Symptoms. Denies: Abdominal Pain, Nausea, Vomiting Genitourinary: Reports: No Symptoms. Denies: Dysuria, Frequency, Burning Musculoskeletal: Reports: No Symptoms Neurological: Reports: No Symptoms Psychiatric: Reports: No Symptoms - Patient Data Vitals - Most Recent: Last Vital Signs Temp 98.4 F 05/26/17 07:30 Pulse 104 H 05/26/17 08:45 Resp 34 H 05/26/17 07:30 BP 171/94 H 05/26/17 08:47 Pulse Ox 95 05/26/17 07:30 Weight - Most Recent: 60.3 kg I&O - Last 24 Hours: Intake & Output 05/25/17 05/26/17 05/26/17 22:59 06:59 14:59 Intake Total 590 736 Output Total 1100 900 Balance -510 -164 Med Orders - Current: Current Medications Acetaminophen (Tylenol) 650 mg PO Q4H PRN PRN Reason: PAIN/FEVER Last Admin: 05/24/17 14:39 Dose: 650 mg Allopurinol (Zyloprim) 100 mg PO BID [facility] Last Admin: 05/26/17 08:44 Dose: 100 mg Artificial Tears (Liquitears 1.4% Ophth Soln) 0 ml EYEBOTH QID PRN PRN Reason: DRY EYE Bisacodyl (Dulcolax) 5 mg PO DAILY PRN PRN Reason: Constipation Last Admin: 05/25/17 20:58 Dose: 5 mg Bisacodyl (Dulcolax) 10 mg RECTAL BEDTIME PRN PRN Reason: Constipation Citalopram Hydrobromide (Celexa) 10 mg PO DAILY [facility] Last Admin: 05/26/17 08:46 Dose: 10 mg Clonidine HCl (Catapres) 0.1 mg PO Q12HR [facility] Last Admin: 05/26/17 08:47 Dose: 0.1 mg Diltiazem HCl (Cardizem Cd) 240 mg PO DAILY [facility] Last Admin: 05/26/17 08:45 Dose: 240 mg Furosemide (Lasix) 40 mg PO DAILY [facility] Last Admin: 05/26/17 08:46 Dose: 40 mg Levothyroxine Sodium (Synthroid) 50 mcg PO ACBREAKFAST [facility] Last Admin: 05/26/17 06:44 Dose: 50 mcg Lisinopril (Prinivil) 20 mg PO DAILY [facility] Last Admin: 05/26/17 08:46 Dose: 20 mg Mirtazapine (Remeron) 45 mg PO BEDTIME [facility] Last Admin: 05/25/17 20:47 Dose: 45 mg Morphine Sulfate (Morphine) 2 mg IVPUSH Q2H PRN PRN Reason: Pain/shortnessofbreath Last Admin: 05/24/17 00:42 Dose: 2 mg Polyethylene Glycol (Miralax) 17 gm PO DAILY [facility] Sodium Chloride (Saline Flush) 10 ml FLUSH ASDIRECTED PRN PRN Reason: Keep Vein Open Sodium Chloride (Saline Flush) 2.5 ml FLUSH ASDIRECTED PRN PRN Reason: Keep Vein Open Warfarin Sodium (Coumadin) 5 mg PO DAILY@1400 [facility] Last Admin: 05/25/17 13:57 Dose: 5 mg Discontinued Medications Aspirin (Aspirin) 324 mg PO ONETIME ONE Stop: 05/23/17 09:09 Last Admin: 05/23/17 09:20 Dose: 324 mg Bisacodyl (Dulcolax) 10 mg RECTAL ASDIRECTED PRN PRN Reason: Constipation Diltiazem HCl (Diltiazem) 20 mg IVPUSH ONETIME ONE Stop: 05/23/17 08:40 Last Admin: 05/23/17 08:46 Dose: 20 mg Fluoxetine HCl (Prozac) 10 mg PO DAILY [facility] Furosemide (Lasix) 40 mg PO DAILY [facility] Furosemide (Lasix) 40 mg IVPUSH NOW ONE Stop: 05/24/17 08:40 Last Admin: 05/24/17 09:01 Dose: 40 mg Sodium Chloride (Normal Saline) 500 mls @ 999 mls/hr IV .Bolus ONE Stop: 05/23/17 09:00 Last Admin: 05/23/17 08:34 Dose: 999 mls/hr Morphine Sulfate (Morphine) 2 mg IVPUSH ONETIME ONE Stop: 05/23/17 09:15 Last Admin: 05/23/17 09:20 Dose: 2 mg Nitroglycerin (Nitrostat) 0.4 mg SL Q5M PRN PRN Reason: Chest Pain Nitroglycerin (Nitro-Bid 2%) 1 gm TOP ONETIME ONE Stop: 05/23/17 09:43 Last Admin: 05/23/17 09:46 Dose: 1 gm - Exam Quality Assessment: DVT Prophylaxis. No: Supplemental Oxygen General: Alert, Oriented, Cooperative, No Acute Distress Neck: Supple Lungs: Clear to Auscultation, Normal Respiratory Effort Cardiovascular: Regular Rate, Irregular Rhythm GI/Abdominal Exam: Normal Bowel Sounds, Soft, Non-Tender, No Organomegaly, No Distention, No Abnormal Bruit, No Mass, Pelvis Stable Extremities: Normal Inspection, Normal Range of Motion, Non-Tender, No Pedal Edema, Normal Capillary Refill Neurological: No New Focal Deficit Psy/Mental Status: Alert, Normal Affect, Normal Mood - Problem List & Annotations (1) Chest pain SNOMED Code(s): 30326039 Code(s): R07.9 - CHEST PAIN, UNSPECIFIED Status: Acute Current Visit: Yes (2) Acute [place] SNOMED Code(s): 42034795 Code(s): I21.9 - ACUTE MYOCARDIAL INFARCTION, UNSPECIFIED Status: Acute Current Visit: Yes Qualifiers: Myocardial infarction type: non-ST elevation myocardial infarction Qualified Code(s): I21.4 - Non-ST elevation (NSTEMI) myocardial infarction (3) Dyspnea SNOMED Code(s): 003429392 Code(s): R06.00 - DYSPNEA, UNSPECIFIED Status: Acute Current Visit: No Qualifiers: Dyspnea type: dyspnea on exertion Qualified Code(s): R06.09 - Other forms of dyspnea (4) Systolic heart failure SNOMED Code(s): 265167508 Code(s): I50.20 - UNSPECIFIED SYSTOLIC (CONGESTIVE) HEART FAILURE Status: Acute Current Visit: No Qualifiers: Heart failure chronicity: acute on chronic Qualified Code(s): I50.23 - Acute on chronic systolic (congestive) heart failure (5) HTN (hypertension) SNOMED Code(s): 22432302 Code(s): I10 - ESSENTIAL (PRIMARY) HYPERTENSION Status: Acute Current Visit: No Qualifiers: Hypertension type: essential hypertension Qualified Code(s): I10 - Essential (primary) hypertension (6) Atrial fibrillation SNOMED Code(s): 03819534 Code(s): I48.91 - UNSPECIFIED ATRIAL FIBRILLATION Status: Chronic Current Visit: No Qualifiers: Atrial fibrillation type: chronic Qualified Code(s): I48.2 - Chronic atrial fibrillation - Problem List Review Problem List Initiated/Reviewed/Updated: Yes - My Orders Last 24 Hours: My Active Orders 05/25/17 09:00 Furosemide [Lasix] 40 mg PO DAILY 05/26/17 08:45 Communication Order [RC] ROUTINE 05/26/17 09:00 Polyethylene Glycol 3350 [MiraLAX] 17 gm PO DAILY - Plan Plan:: 89 yo female who presented with chest pain and atrial fibrillation with RVR. 1. Chest pain: Denies any today. Continues to improve. Continue palliative care. Continue home medications. 2. Dyspnea: resolved. Possible acute on chronic exacerbation of CHF, systolic. Continue with Morphine as well and monitor for comfort. Requiring oxygen PRN, ambulating this morning Oz 94% on RA. Continue to monitor and place oxygen for comfort PRN. 3. Afib: Stable. Continue Coumadin. No RVR noted. HR 80-90s Dispo: pending transfer to [place], discharge tomorrow to [place].
[2017-05-26] MEDS: Polyethylene Glycol 3350 Powder 17 GM Packet PO SCH (10:41)
[2017-05-26] MEDS: Warfarin 5 MG Tab PO SCH (13:17)
[2017-05-26] MEDS: Mirtazapine 15 MG Tab.DIS PO SCH (20:32)
[2017-05-27] MEDS: Levothyroxine 50 MCG Tab PO SCH (06:33)
[2017-05-27 07:56] VITALS: BP 153/95
[2017-05-27] MEDS: Lisinopril 10 MG Tab PO SCH (09:50)
[2017-05-27] MEDS: Polyethylene Glycol 3350 Powder 17 GM Packet PO SCH (09:50)
[2017-05-27] MEDS: Citalopram 20 MG Tab PO SCH (09:51)
[2017-05-27] MEDS: Diltiazem 120 MG Cap.CD PO SCH (09:52)
[2017-05-27] MEDS: Allopurinol 100 MG Tab PO SCH (09:52)
[2017-05-27] MEDS: Bisacodyl 5 MG Tab PO PRN (09:53)
[2017-05-27] MEDS: Furosemide 40 MG Tab PO SCH (09:53)
[2017-05-27] MEDS: cloNIDine 0.1 MG Tab PO SCH (09:53)
--- NOTE | 2017-05-27 12:46 | PCM.DCSUM1 ---
Discharge Summary - Hospital Course Brief History: 89 yo female with pmh of atrial fibrillation who presented to the ED with complaints of chest pain that started last night. She was noted to be atrial fibrillatio with rate in the 118. She was given IV diltiazem with resolution of rapid ventricular rate and chest pain. According to the patient she only wants comfort measures. - Discharge Data Discharge Date: 05/27/17 Discharge Disposition: DC/Tfer to SNF 03 Condition: Good - Discharge Diagnosis/Problem(s) (1) Chest pain SNOMED Code(s): 08218302 ICD Code: R07.9 - CHEST PAIN, UNSPECIFIED Status: Resolved (2) Acute NC SNOMED Code(s): 65136573 ICD Code: I21.9 - ACUTE MYOCARDIAL INFARCTION, UNSPECIFIED Status: Acute Qualifiers: Myocardial infarction type: non-ST elevation myocardial infarction Qualified Code(s): I21.4 - Non-ST elevation (NSTEMI) myocardial infarction (3) Dyspnea SNOMED Code(s): 465767661 ICD Code: R06.00 - DYSPNEA, UNSPECIFIED Status: Resolved Qualifiers: Dyspnea type: dyspnea on exertion Qualified Code(s): R06.09 - Other forms of dyspnea (4) Systolic heart failure SNOMED Code(s): 032556161 ICD Code: I50.20 - UNSPECIFIED SYSTOLIC (CONGESTIVE) HEART FAILURE Status: Acute Qualifiers: Heart failure chronicity: acute on chronic Qualified Code(s): I50.23 - Acute on chronic systolic (congestive) heart failure (5) HTN (hypertension) SNOMED Code(s): 41652524 ICD Code: I10 - ESSENTIAL (PRIMARY) HYPERTENSION Status: Acute Qualifiers: Hypertension type: essential hypertension Qualified Code(s): I10 - Essential (primary) hypertension (6) Atrial fibrillation SNOMED Code(s): 89182576 ICD Code: I48.91 - UNSPECIFIED ATRIAL FIBRILLATION Status: Chronic Qualifiers: Atrial fibrillation type: chronic Qualified Code(s): I48.2 - Chronic atrial fibrillation - Patient Instructions Diet: Regular Diet as Tolerated Activity: As Tolerated Showering/Bathing: May Shower Notify Provider of: Fever, Increased Pain, Swelling and Redness, Drainage, Nausea and/or Vomiting Other/Special Instructions: PT/OT/ST to evaluate and treat. Oxygen 2 L NC as needed for comfort or sats less than 88%. - Discharge Plan Prescriptions/Med Rec: Polyethylene Glycol 3350 [MiraLAX] 17 gm PO DAILY PRN #1 bottle PRN Reason: Constipation Home Medications: Home Meds Bisacodyl [Dulcolax] 5 mg PO DAILY PRN #0 tablet 06/27/14 [Rx] Diltiazem [Cardizem CD] 240 mg PO DAILY cap.cd 06/27/14 [Rx] Furosemide [Lasix] 40 mg PO DAILY tablet 06/27/14 [Rx] Mirtazapine [Remeron] 45 mg PO BEDTIME #30 tab.dis 06/27/14 [Rx] cloNIDine [Catapres] 0.1 mg PO Q12HR tablet 06/27/14 [Rx] Acetaminophen [Arthritis Pain Relief] 650 mg PO Q4H PRN 05/15/16 [History] Allopurinol [Zyloprim] 100 mg PO BID 05/15/16 [History] Citalopram [Celexa] 10 mg PO DAILY 05/15/16 [History] Levothyroxine [Synthroid] 50 mcg PO DAILY 05/15/16 [History] Lisinopril [Prinivil] 20 mg PO DAILY 05/15/16 [History] Magnesium Hydroxide [Milk of Magnesia] 30 ml PO Q6H PRN 05/15/16 [History] Warfarin [Coumadin] 5 mg PO DAILY 05/15/16 [History] Dextran 70/Hypromellose [Artificial Tears] 1 drop EYEBOTH QID PRN 07/19/16 [ History] guaiFENesin 100 mg PO Q4H PRN 07/19/16 [History] Bisacodyl 10 mg RECTAL BEDTIME PRN #0 05/26/17 [Rx] Polyethylene Glycol 3350 [MiraLAX] 17 gm PO DAILY PRN #1 bottle 05/26/17 [Rx] Patient Handouts: Polyethylene Glycol powder - Discharge Summary/Plan Comment DC Time >30 min.: No Discharge Summary/Plan Comment: Discharge Diagnoses: Elevated troponin Possible NSTEMI Systolic CHF- stable Afib HTN Palliative care Chest pain-resolved Ethyl was admitted due to acute chest pain with elevate troponin, she also was noted to have afib with RVR. She and family requested palliative care for possible NSTEMI. No further labwork or work up was completed. She was continued on home medications. Some dyspnea was noted and she was treated with IV lasix x 1 dose which improved this. She has remained stable and chest pain free since day one of admission. She did have some acute delirium secondary to stay in hospital but otherwise did well. Family requested transfer to [facility] due to dementia and deconditioning. She had started to wander at her [facility] apartment and they were concerned for her safety and health. Dr. Geovanni Harmon PCP was notified of admission and decision by family and Vinny HOFFMANN, son, to continue with palliative cares and comfort measures upon discharge to [facility]. All home medications were continued. She is to see Dr Harmon in 1 week. Transfer to [facility] today. - General Info Date of Service: 05/27/17 Admission Dx/Problem (Free Text: Admission Diagnosis/Problem Admission Diagnosis/Problem Chest pain Subjective Update: Sitting up in chair. Alert and oriented to self only. Agreeable for [facility] transfer today. Denies chest pain or SOB today. No concerns at this time. Functional Status: Reports: Pain Controlled, Tolerating Diet, Ambulating, Urinating - Review of Systems General: Reports: No Symptoms. Denies: Fever, Weakness, Fatigue HEENT: Reports: No Symptoms. Denies: Sinus Congestion Pulmonary: Reports: No Symptoms. Denies: Shortness of Breath Cardiovascular: Reports: No Symptoms. Denies: Chest Pain, Palpitations, Orthopnea Gastrointestinal: Reports: No Symptoms. Denies: Abdominal Pain, Nausea, Vomiting Genitourinary: Reports: No Symptoms. Denies: Dysuria, Frequency, Burning Musculoskeletal: Reports: No Symptoms Neurological: Reports: No Symptoms Psychiatric: Reports: No Symptoms - Patient Data Vitals - Most Recent: Last Vital Signs Temp 98.8 F 05/27/17 07:55 Pulse 103 H 05/27/17 09:52 Resp 18 05/27/17 07:55 BP 153/95 H 05/27/17 09:53 Pulse Ox 94 L 05/27/17 07:55 Weight - Most Recent: 60.3 kg I&O - Last 24 hours: Intake & Output 05/26/17 05/27/17 05/27/17 22:59 06:59 14:59 Intake Total 520 400 240 Output Total 350 400 150 Balance 170 0 90 Med Orders - Current: Current Medications Discontinued Medications Acetaminophen (Tylenol) 650 mg PO Q4H PRN PRN Reason: PAIN/FEVER Last Admin: 05/24/17 14:39 Dose: 650 mg Allopurinol (Zyloprim) 100 mg PO BID [facility] Last Admin: 05/27/17 09:52 Dose: 100 mg Artificial Tears (Liquitears 1.4% Ophth Soln) 0 ml EYEBOTH QID PRN PRN Reason: DRY EYE Aspirin (Aspirin) 324 mg PO ONETIME ONE Stop: 05/23/17 09:09 Last Admin: 05/23/17 09:20 Dose: 324 mg Bisacodyl (Dulcolax) 5 mg PO DAILY PRN PRN Reason: Constipation Last Admin: 05/27/17 09:53 Dose: 5 mg Bisacodyl (Dulcolax) 10 mg RECTAL ASDIRECTED PRN PRN Reason: Constipation Bisacodyl (Dulcolax) 10 mg RECTAL BEDTIME PRN PRN Reason: Constipation Citalopram Hydrobromide (Celexa) 10 mg PO DAILY [facility] Last Admin: 05/27/17 09:51 Dose: 10 mg Clonidine HCl (Catapres) 0.1 mg PO Q12HR [facility] Last Admin: 05/27/17 09:53 Dose: 0.1 mg Diltiazem HCl (Diltiazem) 20 mg IVPUSH ONETIME ONE Stop: 05/23/17 08:40 Last Admin: 05/23/17 08:46 Dose: 20 mg Diltiazem HCl (Cardizem Cd) 240 mg PO DAILY [facility] Last Admin: 05/27/17 09:52 Dose: 240 mg Fluoxetine HCl (Prozac) 10 mg PO DAILY [facility] Furosemide (Lasix) 40 mg PO DAILY [facility] Furosemide (Lasix) 40 mg IVPUSH NOW ONE Stop: 05/24/17 08:40 Last Admin: 05/24/17 09:01 Dose: 40 mg Furosemide (Lasix) 40 mg PO DAILY [facility] Last Admin: 05/27/17 09:53 Dose: 40 mg Sodium Chloride (Normal Saline) 500 mls @ 999 mls/hr IV .Bolus ONE Stop: 05/23/17 09:00 Last Admin: 05/23/17 08:34 Dose: 999 mls/hr Levothyroxine Sodium (Synthroid) 50 mcg PO ACBREAKFAST [facility] Last Admin: 04/05/18 06:33 Dose: 50 mcg Lisinopril (Prinivil) 20 mg PO DAILY [facility] Last Admin: 05/27/17 09:50 Dose: 20 mg Mirtazapine (Remeron) 45 mg PO BEDTIME [facility] Last Admin: 05/26/17 20:32 Dose: 45 mg Morphine Sulfate (Morphine) 2 mg IVPUSH ONETIME ONE Stop: 05/23/17 09:15 Last Admin: 05/23/17 09:20 Dose: 2 mg Morphine Sulfate (Morphine) 2 mg IVPUSH Q2H PRN PRN Reason: Pain/shortnessofbreath Last Admin: 05/24/17 00:42 Dose: 2 mg Nitroglycerin (Nitrostat) 0.4 mg SL Q5M PRN PRN Reason: Chest Pain Nitroglycerin (Nitro-Bid 2%) 1 gm TOP ONETIME ONE Stop: 05/23/17 09:43 Last Admin: 05/23/17 09:46 Dose: 1 gm Polyethylene Glycol (Miralax) 17 gm PO DAILY [facility] Last Admin: 05/27/17 09:50 Dose: 17 gm Sodium Chloride (Saline Flush) 10 ml FLUSH ASDIRECTED PRN PRN Reason: Keep Vein Open Sodium Chloride (Saline Flush) 2.5 ml FLUSH ASDIRECTED PRN PRN Reason: Keep Vein Open Warfarin Sodium (Coumadin) 5 mg PO DAILY@1400 [facility] Last Admin: 05/26/17 13:17 Dose: 5 mg - Exam Quality Assessment: Denies: Supplemental Oxygen General: Reports: Alert. Denies: Oriented (only to self), Cooperative, No Acute Distress Neck: Denies: Supple Lungs: Reports: Clear to Auscultation Cardiovascular: Reports: Regular Rate, Irregular Rhythm GI/Abdominal Exam: Normal Bowel Sounds, Soft, Non-Tender, No Organomegaly, No Distention, No Abnormal Bruit, No Mass, Pelvis Stable Extremities: Normal Inspection, Normal Range of Motion, Non-Tender, No Pedal Edema, Normal Capillary Refill Skin: Reports: Warm, Dry Neurological: Reports: No New Focal Deficit Psy/Mental Status: Reports: Alert, Normal Affect, Normal Mood
== END 2017-05-27 11:15 | DRG 280 ==
LOC: MW.ED 08:10 → MW.MS 09:35 → OBSVTOIN 05-24 13:09
PROVIDERS: ADMIT Internal Medicine; ATTEND Internal Medicine
DX: I21.9 Acute myocardial infarction, unspecified (principal); I48.91 Unspecified atrial fibrillation; R07.9 Chest pain, unspecified; R06.02 Shortness of breath; I21.4 Non-ST elevation (NSTEMI) myocardial infarction; I50.23 Acute on chronic systolic (congestive) heart failure; I50.22 Chronic systolic (congestive) heart failure; F05 Delirium due to known physiological condition; H35.30 Unspecified macular degeneration; I11.0 Hypertensive heart disease with heart failure; I25.10 Atherosclerotic heart disease of native coronary artery without angina pectoris; K21.9 Gastro-esophageal reflux disease without esophagitis; M10.9 Gout, unspecified; M62.81 Muscle weakness (generalized); E21.3 Hyperparathyroidism, unspecified; E78.5 Hyperlipidemia, unspecified; I48.2 Chronic atrial fibrillation; F03.90 Unspecified dementia, unspecified severity, without behavioral disturbance, psychotic disturbance, mood disturbance, and anxiety; Z87.01 Personal history of pneumonia (recurrent); Z91.83 Wandering in diseases classified elsewhere; Z66 Do not resuscitate; Z79.01 Long term (current) use of anticoagulants; Z51.5 Encounter for palliative care; Z79.899 Other long term (current) drug therapy
CPT/HCPCS: 36415; 71045; 80053; 84484; 85025; 85610; 93005; 96361; 96374; 96375; 99285; A9270 ×14; J1940; J2270 ×2; J3490; J7040; 96376; 99284; G0378